=== PATIENT | male | born 1975 | race Two or more races ===

== ENCOUNTER 2016-07-31 14:29 | Emergency (ER) | payer OTHER ==
[~2016-07-31] VITALS: Ht 160 cm; Wt 113.4 kg
[~2016-07-31 14:29] MED LIST: CEPHALEXIN500 MG ORAL
--- NOTE | 2016-07-31 15:55 | Emergency Room Report ---
History of Present Illness General Chief Complaint: Wound Recheck/Suture Removal Source: Patient Present Illness HPI 41-year-old male presents emergency department requesting suture removal. Patient was seen here in the ER over 2 weeks ago with sutures that were placed in the left thumb status post laceration. Patient denies erythema, crusting, discharge or pain. he denies nausea, vomiting, fevers or chills.Denies numbness tingling or loss of sensation or gross motor movements of the extremities, incontinence of bowel or bladder. Denies CP, Palpitations, LOC, AMS , dizziness, Changes in Vision, Sensation, paresthesias, or a sudden severe headache. Allergies: Coded Allergies: No Known Allergies (Unverified , 07/14/16) Patient History Past Medical History: see triage record Past Surgical History: none Pertinent Family History: none Immunizations: UTD Reviewed Nursing Documentation: PMH: Agreed, PSxH: Agreed Nursing Documentation-PMH Past Medical History: No Stated History Review of Systems All Other Systems: negative except mentioned in HPI Physical Exam Vital Signs Date Time Temp Pulse Resp B/P Pulse Ox O2 Delivery O2 Flow Rate FiO2 07/31/16 15:38 98.4 80 18 123/69 96 Room Air Sp02 EP Interpretation: reviewed, normal General Appearance: no apparent distress, alert, GCS 15, non-toxic Head: normocephalic, atraumatic Eyes: bilateral eye PERRL, bilateral eye normal inspection ENT: hearing grossly normal, normal pharynx, no angioedema, normal voice Neck: full range of motion, supple/symm/no masses Respiratory: chest non-tender, lungs clear, normal breath sounds, speaking full sentences Cardiovascular #1: regular rate, rhythm, no edema Rectal: deferred Musculoskeletal: back normal, gait/station normal, normal range of motion, non- tender, no calf tenderness Neurologic: alert, oriented x3, responsive, motor strength/tone normal, sensory intact, speech normal Psychiatric: judgement/insight normal, memory normal, mood/affect normal, no suicidal/homicidal ideation Skin: normal color, no rash, warm/dry, well hydrated, wd healing/no infection noted - there are [address], no evidence of infection to the dorsum of the left thumb Lymphatic: no adenopathy Medical Decision Making PA Attestation Dr. Goyal is my supervising Physician whom patient management has been discussed with. Diagnostic Impression: Primary Impression: Encounter for removal of sutures ER Course Pt. presents to the ED c/o Sutures in the left thumb that need to be removed s/ p wound closure. Ddx considered but are not limited to laceration, tendon injury, cellulitis, dehiscence. Vital signs: are WNL, pt. is afebrile H&PE are most consistent with: healed laceration of the dorsum of the left thumb ORDERS: none required at this time, the diagnosis is clinical ED INTERVENTIONS: - 5 Sutures removed. Pt. tolerated well there were no complications. DISCHARGE: At this time pt. is stable for d/c to home. Will provide printed patient care instructions, and any necessary prescriptions. Care plan and follow up instructions have been discussed with the patient prior to discharge. Last Vital Signs Date Time Temp Pulse Resp B/P Pulse Ox O2 Delivery O2 Flow Rate FiO2 07/31/16 15:38 98.4 80 18 123/69 96 Room Air Disposition: HOME, SELF-CARE Condition: Stable Patient Instructions: Suture Removal, Care After Additional Instructions: Take medications as directed. Follow up with PCP in 3-5 days Return sooner to ED if new symptoms occur, or current symptoms become worse. Dora Thomas Jul 31, 2016 15:55
[2016-07-31 16:07] VITALS: BP 123/69
== END 2016-07-31 16:30 | disposition home or self-care (01) ==
LOC: EMR 16:11
DX: Z48.817 Encounter for surgical aftercare following surgery on the skin and subcutaneous tissue (principal); Z48.02 Encounter for removal of sutures
CPT/HCPCS: 99282